=== PATIENT | male | born 1970 | race Caucasian/White ===

== ENCOUNTER 2021-09-23 21:40 | Emergency (ER) | payer OTHER ==
[2021-09-23 21:56] VITALS: BP 140/82; PULSE 62; TEMP 99; BMI 23.7
[2021-09-23] MEDS ORDERED: IBUPROFEN 400 MG TABLET (FP) PO ONE ×2 (21:58→22:26)
== END 2021-09-23 22:32 | disposition home or self-care (01) ==
LOC: FER 21:40
DX: M79.672 Pain in left foot (principal)
CPT/HCPCS: 73630-TC-LT; 99283-25

== ENCOUNTER 2025-02-26 06:59 | Day surgery (SDC) | payer BC ==
[2025-02-24 11:31] VITALS: BMI 23.2
[2025-02-26] MEDS ORDERED: BUPIVACAINE HCL/PF 0.75% 10 ML VIAL ONE (07:41)
[2025-02-26] MEDS ORDERED: LIDOCAINE HCL/PF 1% SDV 5ML VIAL ONE (07:41)
[2025-02-26] MEDS ORDERED: ACETAMINOPHEN 500 MG TABLET (FP) PO PRN (08:35)
[2025-02-26] MEDS: LIDOCAINE HCL 1% PRESERVATIVE FREE - 30ML VIAL IJ ONE (08:55)
[2025-02-26] MEDS: BUPIVACAINE HCL/PF 0.75% 10 ML VIAL NR ONE (09:00)
[2025-02-26 10:19] VITALS: BP 110/67; PULSE 47; RESP 20; TEMP 97.3
== END 2025-02-26 09:17 | disposition home or self-care (01) ==
LOC: JASU-SURG 06:59
PROVIDERS: ATTEND Pain Medicine Pain Medicine
PROC: 3E0T33Z Introduction of Anti-inflammatory into Peripheral Nerves and Plexi, Percutaneous Approach (ICD-10-PCS; 2025-02-26)
PROC: 3E0T3BZ Introduction of Anesthetic Agent into Peripheral Nerves and Plexi, Percutaneous Approach (ICD-10-PCS; principal; 2025-02-26 09:15)
DX: M47.816 Spondylosis without myelopathy or radiculopathy, lumbar region (principal)
CPT/HCPCS: 76000-TC-FY

== ENCOUNTER 2025-03-25 06:13 | Day surgery (SDC) | payer BC ==
[2025-03-25] MEDS ORDERED: ACETAMINOPHEN 500 MG TABLET (FP) PO PRN (08:51)
[2025-03-25] MEDS: LIDOCAINE HCL 1% PRESERVATIVE FREE - 30ML VIAL IJ ONE ×2 (12:28)
[2025-03-25] MEDS: BUPIVACAINE HCL/PF 0.75% 10 ML VIAL NR ONE ×2 (12:28)
[2025-03-25 13:52] VITALS: BP 108/73; PULSE 50; RESP 18; TEMP 97.8
== END 2025-03-25 12:55 | disposition home or self-care (01) ==
LOC: JASU-SURG 06:13
PROVIDERS: ATTEND Pain Medicine Pain Medicine
PROC: 3E0T33Z Introduction of Anti-inflammatory into Peripheral Nerves and Plexi, Percutaneous Approach (ICD-10-PCS; 2025-03-25)
PROC: 3E0T3BZ Introduction of Anesthetic Agent into Peripheral Nerves and Plexi, Percutaneous Approach (ICD-10-PCS; principal; 2025-03-25 12:30)
DX: M47.816 Spondylosis without myelopathy or radiculopathy, lumbar region (principal)
CPT/HCPCS: 76000-TC-FY

== ENCOUNTER 2025-04-30 06:17 | Day surgery (SDC) | payer BC ==
[2025-04-30] MEDS: BUPIVACAINE HCL/PF 0.5% (5 MG/ML) 30 ML VIAL IJ ONE
[2025-04-30] MEDS ORDERED: LIDOCAINE HCL/PF 1% SDV 5ML VIAL ONE (07:38)
[2025-04-30] MEDS ORDERED: BUPIVACAINE HCL/PF 0.5% (5MG/ML) 10 ML VIAL ONE (07:38)
[2025-04-30] MEDS ORDERED: LIDOCAINE HCL/PF 2% SDV 5ML VIAL ONE (07:38)
[2025-04-30] MEDS ORDERED: DEXAMETHASONE SOD PHOSPHATE 10 MG/1 ML VIAL ONE (07:38)
[2025-04-30] MEDS: LIDOCAINE HCL 1% PRESERVATIVE FREE - 30ML VIAL IJ ONE ×2 (13:23)
[2025-04-30] MEDS: LIDOCAINE HCL 2% (50ML VIAL) INF ONE ×2 (13:24)
[2025-04-30] MEDS: BUPIVACAINE HCL/PF 0.75% 10 ML VIAL NR ONE (13:35)
[2025-04-30] MEDS: DEXAMETHASONE SOD PHOSPHATE 10 MG/1 ML VIAL IVPUSH ONE ×2 (13:36)
[2025-04-30 14:20] VITALS: BP 125/71; PULSE 60; RESP 20; TEMP 98
== END 2025-04-30 14:00 | disposition home or self-care (01) ==
LOC: JASU-SURG 06:17
PROVIDERS: ATTEND Pain Medicine Pain Medicine
PROC: 015B3ZZ Destruction of Lumbar Nerve, Percutaneous Approach (ICD-10-PCS; principal; 2025-04-30 11:45)
DX: M47.816 Spondylosis without myelopathy or radiculopathy, lumbar region (principal)
CPT/HCPCS: 76000-TC-FY; J1100